=== PATIENT | male | born 1985 | race Two or more races ===

== ENCOUNTER 2024-10-04 16:07 | Emergency (ER) | payer SELFPAY ==
[~2024-10-04] VITALS: Ht 182.9 cm; Wt 83.2 kg
[2024-10-04 16:21] VITALS: TEMP 99.5
[2024-10-04 16:55] LABS: BASO % 0.5 % (0.0-1.0); EOS # 0.1 10^3/uL (0.0-0.5); EOS % 0.7 % (0.0-3.0); HEMATOCRIT 46.9 % (42.0-52.0); HEMOGLOBIN 16.1 g/dl (13.5-17.5); LYMPH # 2.3 10^3/uL (1.5-5.0); MEAN CORPUSCULAR HGB CONC 34.3 g/dl (32.0-36.5); MEAN CORPUSCULAR VOLUME 90.2 fl (80.0-96.0); MONO # 0.5 10^3/uL (0.0-0.8); MONO % 6.7 % (2.0-8.0); NEUTROPHILS % 62.7 % (36.0-66.0); PLATELET COUNT, AUTOMATED 285 10^3/uL (150-450)
[2024-10-04 17:08] LABS: CK-MB VALUE MASS < 1.0 NG/ML (<3.6); LIPASE 45 U/L (12-53)
[2024-10-04 17:11] LABS: ALBUMIN 4.4 G/DL (3.2-5.2); ALKALINE PHOSPHATASE 77 U/L (40-129); ALT/SGPT 169 U/L (7.0-40); AST/SGOT 30 U/L (<34); BILIRUBIN,DIRECT 0.3 MG/DL (<0.4); BILIRUBIN,TOTAL 0.9 MG/DL (0.3-1.2); BLOOD UREA NITROGEN 10 MG/DL (9-23); CALCIUM LEVEL 9.7 MG/DL (8.5-10.1); CARBON DIOXIDE LEVEL 27 MMOL/L (20-31); CHLORIDE LEVEL 105 MMOL/L (98-107); CREATININE FOR GFR 0.73 MG/DL (0.70-1.30); GLOMERULAR FILTRATION RATE > 60.0 (>60); GLUCOSE, FASTING 99 MG/DL (60-100); POTASSIUM SERUM 4.1 MMOL/L (3.5-5.1); SODIUM LEVEL 140 MMOL/L (136-145); THYROID STIMULATING HORMONE 4.469 uIU/ML (0.55-4.78); TOTAL PROTEIN 7.9 G/DL (5.7-8.2)
[2024-10-04 17:12] LABS: FREE T4 1.31 NG/DL (0.89-1.76)
[2024-10-04 17:15] LABS: CPK CREATINE PHOSPHOKINASE 148 U/L (46-171); MB/CK RELATIVE INDEX 0.67 (< OR =4)
[2024-10-04 18:37] LABS: CK-MB VALUE MASS < 1.0 NG/ML (<3.6); CPK CREATINE PHOSPHOKINASE 130 U/L (46-171); MB/CK RELATIVE INDEX 0.76 (< OR =4)
[2024-10-04 19:00] VITALS: BP 139/80; O2SAT 92
== END 2024-10-04 19:34 | disposition home or self-care (01) ==
LOC: EDBD 16:07 → M ED 16:07
DX: R07.9 Chest pain, unspecified (principal)